=== PATIENT | male | born 2000 | race Caucasian/White ===

== ENCOUNTER → 2023-12-01 | Outpatient (CLI) | payer OTHER | LOC: M WHC 13:53 | PROVIDERS: ATTEND Physician Assistant | DX: N62 Hypertrophy of breast (principal); R92.8 Other abnormal and inconclusive findings on diagnostic imaging of breast | CPT/HCPCS: 76642; 77066; G0279 ==

== ENCOUNTER 2024-07-27 08:01 | Day surgery (SDC) | payer OTHER ==
[~2024-07-27] VITALS: Ht 177.8 cm; Wt 81.6 kg
[~2024-07-27 08:01] MED LIST: AMPH1CAP16 PO
[2024-07-27] MEDS ORDERED: ACETAMINOPHEN 1000MG 100ML IV BAG As Ordered ONE (08:26)
[2024-07-27] MEDS ORDERED: LIDOCAINE 2% 100MG/5ML SDV (FOR ANES.) As Ordered ONE (08:26)
[2024-07-27] MEDS ORDERED: propofoL 200 MG/20 ML VIAL As Ordered ONE (08:26)
[2024-07-27] MEDS ORDERED: fentaNYL 100 MCG/2 ML INJECTION As Ordered ONE (08:26)
[2024-07-27] MEDS ORDERED: MIDAZOLAM INJ 2MG/2ML VIAL As Ordered ONE (08:26)
[2024-07-27] MEDS: LR 1,000 ML IV SCH (08:43)
[2024-07-27] MEDS ORDERED: EPINEPHrine INJ 1 MG/ML 1ML AMP As Ordered ONE (10:52)
[2024-07-27] MEDS ORDERED: GENTAMICIN SULF 80MG/2ML VIAL As Ordered ONE (10:53)
[2024-07-27] MEDS: HEPARIN SOD (PORCINE) 5000UNITS/ML 1ML VIAL/SYRINGE SQ ONE (12:02)
[2024-07-27] MEDS: ceFAZolin SOD 2 GM in IV 1 EA IV ONE (12:05)
[2024-07-27] MEDS: LIDOCAINE 1% MDV 20ML VIAL As Ordered ONE (12:35)
[2024-07-27] MEDS ORDERED: HYDROMORPHONE HCL 0.5 MG/ 0.5 ML SYRINGE IV PRN (13:35)
[2024-07-27] MEDS ORDERED: LR 1,000 ML IV SCH (13:35)
[2024-07-27] MEDS ORDERED: fentaNYL 100 MCG/2 ML INJECTION IV PRN (13:35)
[2024-07-27] MEDS ORDERED: ONDANSETRON 4MG 2ML VIAL IV PRN (13:35)
[2024-07-27] MEDS ORDERED: OXYC1TAB23 PO (13:41)
[2024-07-27] MEDS: oxyCODONE 5MG TAB PO PRN (13:58)
[2024-07-27 16:50] VITALS: BP 132/80; TEMP 97.4; O2SAT 99
== END 2024-07-27 17:28 | disposition home or self-care (01) ==
LOC: M SDC 08:01
PROVIDERS: ATTEND Plastic Surgery Surgery of the Hand
DX: N62 Hypertrophy of breast (principal); F90.9 Attention-deficit hyperactivity disorder, unspecified type; F41.9 Anxiety disorder, unspecified; Z79.899 Other long term (current) drug therapy; Z88.8 Allergy status to other drugs, medicaments and biological substances
CPT/HCPCS: 19300; 88300; 88305; C9290; J0131; J0171; J0665; J0690; J1580; J2250; J3010